=== PATIENT | female | born 1990 | race African-American/Black ===

== ENCOUNTER 2018-04-03 15:17 | Emergency (ER) | payer OTHER ==
[2018-04-03 15:34] VITALS: BP 114/48; PULSE 70; TEMP 98.4; BMI 20.7
[2018-04-03] MEDS ORDERED: SODIUM CHLORIDE 1,000 ML IV STA (16:23)
[2018-04-03] MEDS ORDERED: ACETAMINOPHEN 1000 MG/100 ML VIAL (NON FORMULARY) IVPB ONE (16:23)
--- NOTE | 2018-04-03 16:24 | PDOC ---
History of Present Illness - General Chief Complaint: Pain, Acute Stated Complaint: ABD PAIN Time Seen by Provider: 04/03/18 15:46 History Source: Patient Exam Limitations: No Limitations - History of Present Illness Initial Comments: 04/03/18 18:26 Patient is a 27-year-old female with past medical history of endometriosis, who presents to the emergency department today with left lower quadrant pain, back pain, frequency, dysuria and urgency. Patient states her symptoms have lasted about a month. She states she's been following with an INVESTIGATOR FRAUD for her endometriosis. She states that her symptoms usually occur with her cycle however the symptoms never resolved from the prior month. Denies fevers, chills , shirts of breath, difficulty breathing, nausea, vomiting and diarrhea. Past History - Travel Traveled outside of the country in the last 30 days: No Close contact w/someone who was outside of country & ill: No - Past Medical History Allergies/Adverse Reactions: Allergies Allergy/AdvReac Type Severity Reaction Status Date / Time No Known Allergies Allergy Verified 04/03/18 15:30 Home Medications: Ambulatory Orders NK [No Known Home Medication] 05/24/14 COPD: No Other medical history: CHRONIC LOWER BACK PAIN - Suicide/Smoking/Psychosocial Hx Smoking History: Never smoked Review of Systems - Review of Systems Able to Perform ROS?: Yes Comments:: 04/03/18 18:23 CONSTITUTIONAL: Absent: fever, chills, diaphoresis, generalized weakness, malaise, loss of appetite HEENT: Absent: rhinorrhea, nasal congestion, throat pain, throat swelling, difficulty swallowing, mouth swelling, ear pain, eye pain, visual Changes CARDIOVASCULAR: Absent: chest pain, loss of consciousness, palpitations, irregular heart rate, peripheral edema RESPIRATORY: Absent: cough, shortness of breath, dyspnea with exertion, orthopnea, wheezing, stridor, hemoptysis GASTROINTESTINAL: Present: abdominal pain Absent: abdominal pain, abdominal distension, nausea, vomiting, diarrhea, constipation, melena, hematochezia GENITOURINARY: Present: dysuria, frequency, urgency. Absent: dysuria, frequency, urgency, hesitancy, hematuria, flank pain, genital pain MUSCULOSKELETAL: Absent: myalgia, arthralgia, joint swelling SKIN: Absent: rash, itching, pallor HEMATOLOGIC/IMMUNOLOGIC: Absent: easy bleeding, easy bruising, lymphadenopathy, frequent infections ENDOCRINE: Absent: unexplained weight gain, unexplained weight loss, heat intolerance, cold intolerance NEUROLOGIC: Absent: headache, focal weakness or paresthesias, dizziness, unsteady gait, seizure, mental status changes, bladder or bowel incontinence PSYCHIATRIC: Absent: anxiety, depression, suicidal or homicidal ideation, hallucinations. Is the patient limited Estonian proficient: No *Physical Exam - Vital Signs Last Vital Signs Temp Pulse Resp BP Pulse Ox 98.4 F 70 19 114/48 L 100 04/03/18 15:30 04/03/18 15:30 04/03/18 15:30 04/03/18 15:30 04/03/18 15:30 - Physical Exam Comments: 04/03/18 18:25 GENERAL: Well developed, well nourished. Awake and alert. No acute distress. HEENT: Normocephalic, atraumatic. PERRLA, EOMI. No conjunctival pallor. Sclera are non- icteric. Moist mucous membranes. Oropharynx is clear. NECK: Supple. Full ROM. No JVD. Carotid pulses 2+ and symmetric, without bruits. No thyromegaly. No lymphadenopathy. CARDIOVASCULAR: Regular rate and rhythm. No murmurs, rubs, or gallops. Distal pulses are 2+ and symmetric. PULMONARY: No evidence of respiratory distress. Lungs clear to auscultation bilaterally. No wheezing, rales or rhonchi. ABDOMINAL: TTP of the LLQ/adenexal region and suprapubic region. Soft. Non-distended. No rebound or guarding. No organomegaly. Normoactive bowel sounds. MUSCULOSKELETAL Normal range of motion at all joints. No bony deformities or tenderness. (+) CVA tenderness. EXTREMITIES: No cyanosis. No clubbing. No edema. No calf tenderness. SKIN: Warm and dry. Normal capillary refill. No rashes. No jaundice. NEUROLOGICAL: Alert, awake, appropriate. Cranial nerves 2-12 intact. No deficits to light touch and temperature in face, upper extremities and lower extremities. No motor deficits in the in face, upper extremities and lower extremities. Normoreflexic in the upper and lower extremities. Normal speech. Toes are down- going bilaterally. Gait is normal without ataxia. PSYCHIATRIC: Cooperative. Good eye contact. Appropriate mood and affect. Moderate Sedation - Procedure Monitoring Vital Signs: Procedure Monitoring Vital Signs Temperature 98.4 F 04/03/18 15:30 Pulse Rate 70 04/03/18 15:30 Respiratory Rate 19 04/03/18 15:30 Blood Pressure 114/48 L 04/03/18 15:30 O2 Sat by Pulse Oximetry (%) 100 04/03/18 15:30 ED Treatment Course - LABORATORY CBC & Chemistry Diagram: 04/03/18 17:00 04/03/18 17:00 Medical Decision Making - Medical Decision Making 04/03/18 18:29 Patient is a 27-year-old female who presents to emergency department with lower abdominal pain for one month. On examination of left lower quadrant tenderness as well as suprapubic tenderness. Patient presented CVA tenderness. UTI versus pylo versus cyst or ovarian pathology. Basic labs, pelvic ultrasound, kidney ultrasound and urine ordered. Reevaluate Sign out given to Jackson MACK. Pt pending labs and US for dispo. Anticipate discharge *DC/Admit/Observation/Transfer Diagnosis at time of Disposition: Chronic female pelvic pain - Discharge Dispostion Disposition: HOME Condition at time of disposition: Stable - Referrals Referrals: Elmer Ruiz MD [Primary Care Provider] - Uvaldo Orourke MD [Staff Physician] - - Patient Instructions Printed Discharge Instructions: DI for Pelvic Pain Additional Instructions: You had a transvaginal ultrasound and renal ultrasound done today. The following are the preliminary reports from the emergency department: Transvaginal ultrasound: 1.8 cm left ovarian follicle cysts is seen. The right ovary appears unremarkable demonstrating several subsegmental follicles. No Doppler evidence of ovarian torsion. A small amount of free fluid is noted within the cul-de- sac. An approximately 3.7 cm subserosa lesion is seen along the uterine fundus probably representing a leiomyoma under statistical bases. Overall the uterine size is approximately 9 x 6 x 4 cm. The endometrium is slightly picking measuring 0.8 cm which may be on physiologic basis. Renal ultrasound: Negative You have been advised to follow-up with your engineering project designer or the one listed on your discharge. Take Tylenol or Motrin as needed for pain every 4-6 hours Return back to the ER for severe/persistent/worsening pain or any concerns - Post Discharge Activity
[2018-04-03] MEDS ORDERED: ACETAMINOPHEN INJECTION 100 ML IVPB ONE (16:48)
[2018-04-03 17:18] LABS: EOS % 6.8 % (0-4.5); HEMATOCRIT 38.4 % (32.4-45.2); HEMOGLOBIN 13.1 GM/dL (10.7-15.3); MEAN CELL VOLUME 82.3 fl (80-96); MEAN PLT VOLUME 9.6 fl (7.5-11.1); MONO % 8.1 % (3.8-10.2); NEUT % 49.1 % (42.8-82.8); PLATELET COUNT 203 K/MM3 (134-434); RBC 4.67 M/mm3 (3.60-5.2); RDW 12.7 % (11.6-15.6); WHITE BLOOD COUNT 4.4 K/mm3 (4.0-10.0)
[2018-04-03 17:22] LABS: HCG,QUALITATIVE URINE Negative
[2018-04-03 17:37] LABS: URINE APPEARANCE CLEAR; URINE BILIRUBIN NEGATIVE (<2.0 mg/dL); URINE COLOR STRAW; URINE GLUCOSE (UA) NEGATIVE (NEGATIVE); URINE KETONE NEGATIVE (NEGATIVE); URINE LEUK ESTERASE NEGATIVE (NEGATIVE); URINE NITRITE NEGATIVE (NEGATIVE); URINE PROTEIN NEGATIVE (NEGATIVE); URINE UROBILINOGEN NEGATIVE mg/dL (0.2-1.0)
[2018-04-03 18:05] LABS: ALBUMIN 3.9 g/dl (3.4-5.0); ALK PHOS 63 U/L (45-117); ANION GAP 5 MMOL/L (8-16); BILIRUBIN,TOTAL 0.1 mg/dL (0.2-1); BLOOD UREA NITROGEN 14 mg/dL (7-18); CALCIUM 9.1 mg/dL (8.5-10.1); CHLORIDE 106 mmol/L (98-107); CO2 24 mmol/L (21-32); CREATININE 0.9 mg/dL (0.55-1.3); GLUCOSE,RANDOM 93 mg/dL (74-106); POTASSIUM 4.3 mmol/L (3.5-5.1); SGOT/AST 14 U/L (15-37); SGPT/ALT 19 U/L (13-61); SODIUM 135 mmol/L (136-145); TOT PROT 8.3 g/dl (6.4-8.2)
--- NOTE | 2018-04-03 19:37 | PDOC ---
History of Present Illness - General Chief Complaint: Pain, Acute Stated Complaint: ABD PAIN Time Seen by Provider: 04/03/18 15:46 History Source: Patient Exam Limitations: No Limitations - History of Present Illness Travel History: No Initial Comments: 04/03/18 19:32 Best Contact: PCP: Dr. Ruiz [phone] / CHLORINATION OPERATOR: Dr. Hensley [phone] Pmhx: Chronic back and abd pain/ prescribed naprosyn from PMD Pshx:none Allergies: malaria med FH:0 Social Hx: Cigarettes/ 0 Alcohol/ social Drugs/0 LMP:Mar 21, 2018 Discharge was documented in front of the patient in the exam room. 27-year-old female otherwise healthy besides having chronic back and abdominal pain which her PMD prescribed Naprosyn for those symptoms. Patient comes in complaining of intermittent left-sided suprapubic discomfort for years. Patient states the pain got worse last month in February. Pain is described as 3/10 nonradiating intermittent discomfort without exacerbating alleviating factors. Patient denies nausea/vomiting, fever/diarrhea, headache, dizziness, lightheadedness, neck pain/stiffness, back pain, chest pain, flank pains, urinary symptoms: Frequency/urgency/hesitancy. Past History - Past Medical History Allergies/Adverse Reactions: Allergies Allergy/AdvReac Type Severity Reaction Status Date / Time No Known Allergies Allergy Verified 04/03/18 15:30 Home Medications: Ambulatory Orders NK [No Known Home Medication] 05/24/14 COPD: No Other medical history: CHRONIC LOWER BACK PAIN - Suicide/Smoking/Psychosocial Hx Smoking History: Never smoked Information on smoking cessation initiated: No Review of Systems - Review of Systems Able to Perform ROS?: Yes Comments:: 04/03/18 19:41 CONSTITUTIONAL: Absent: fever, chills, diaphoresis, generalized weakness, malaise, loss of appetite HEENT: Absent: rhinorrhea, nasal congestion, throat pain, throat swelling, difficulty swallowing, mouth swelling, ear pain, eye pain, visual Changes CARDIOVASCULAR: Absent: chest pain, loss of consciousness, palpitations, irregular heart rate, peripheral edema RESPIRATORY: Absent: cough, shortness of breath, dyspnea with exertion, orthopnea, wheezing, stridor, hemoptysis GASTROINTESTINAL: Left pelvic pain Absent: abdominal pain, abdominal distension, nausea, vomiting, diarrhea, constipation, melena, hematochezia GENITOURINARY: Absent: dysuria, frequency, urgency, hesitancy, hematuria, flank pain, genital pain MUSCULOSKELETAL: Absent: myalgia, arthralgia, joint swelling SKIN: Absent: rash, itching, pallor HEMATOLOGIC/IMMUNOLOGIC: Absent: easy bleeding, easy bruising, lymphadenopathy, frequent infections ENDOCRINE: Absent: unexplained weight gain, unexplained weight loss, heat intolerance, cold intolerance NEUROLOGIC: Absent: headache, focal weakness or paresthesias, dizziness, unsteady gait, seizure, mental status changes, bladder or bowel incontinence PSYCHIATRIC: Absent: anxiety, depression, suicidal or homicidal ideation, hallucinations. Is the patient limited Setswana proficient: No *Physical Exam - Vital Signs Last Vital Signs Temp Pulse Resp BP Pulse Ox 98.4 F 70 19 114/48 L 100 04/03/18 15:30 04/03/18 15:30 04/03/18 15:30 04/03/18 15:30 04/03/18 15:30 - Physical Exam Comments: 04/03/18 19:42 GENERAL: Well developed, well nourished. Awake and alert. No acute distress. HEENT: Normocephalic, atraumatic. PERRLA, EOMI. No conjunctival pallor. Sclera are non- icteric. Moist mucous membranes. Oropharynx is clear. NECK: Supple. Full ROM. No JVD. Carotid pulses 2+ and symmetric, without bruits. No thyromegaly. No lymphadenopathy. CARDIOVASCULAR: Regular rate and rhythm. No murmurs, rubs, or gallops. Distal pulses are 2+ and symmetric. PULMONARY: No evidence of respiratory distress. Lungs clear to auscultation bilaterally. No wheezing, rales or rhonchi. ABDOMINAL: Soft. Non-tender. Non-distended. No rebound or guarding. No organomegaly. Normoactive bowel sounds. MUSCULOSKELETAL Normal range of motion at all joints. No bony deformities or tenderness. No CVA tenderness. EXTREMITIES: No cyanosis. No clubbing. No edema. No calf tenderness. SKIN: Warm and dry. Normal capillary refill. No rashes. No jaundice. PT DECLINES PELVIC EXAM. WILL SEE HER CHLORINATION OPERATOR 04/03/18 19:43 Moderate Sedation - Procedure Monitoring Vital Signs: Procedure Monitoring Vital Signs Temperature 98.4 F 04/03/18 15:30 Pulse Rate 70 04/03/18 15:30 Respiratory Rate 19 04/03/18 15:30 Blood Pressure 114/48 L 04/03/18 15:30 O2 Sat by Pulse Oximetry (%) 100 04/03/18 15:30 ED Treatment Course - LABORATORY CBC & Chemistry Diagram: 04/03/18 17:00 04/03/18 17:00 - ADDITIONAL ORDERS Additional order review: Laboratory Results 04/03/18 04/03/18 17:00 17:00 Sodium 135 L Potassium 4.3 Chloride 106 Carbon Dioxide 24 Anion Gap 5 L BUN 14 Creatinine 0.9 Creat Clearance w eGFR > 60 Random Glucose 93 Calcium 9.1 Total Bilirubin 0.1 L AST 14 L ALT 19 Alkaline Phosphatase 63 Total Protein 8.3 H Albumin 3.9 Urine Color Straw Urine Appearance Clear Urine pH 5.0 D Ur Specific [place] 1.012 Urine Protein Negative Urine Glucose (UA) Negative Urine Ketones Negative Urine Blood Negative Urine Nitrite Negative Urine Bilirubin Negative Urine Urobilinogen Negative Ur Leukocyte Esterase Negative Urine HCG, Qual Negative 04/03/18 17:00 RBC 4.67 MCV 82.3 MCHC 34.0 RDW 12.7 MPV 9.6 Neutrophils % 49.1 D Lymphocytes % 35.0 Monocytes % 8.1 Eosinophils % 6.8 H Basophils % 1.0 - Medications Given in the ED: ED Medications Discontinued Medications Generic Name Dose Route Start Last Admin Trade Name Freq PRN Reason Stop Dose Admin Acetaminophen 1,000 mg 04/03/18 16:23 04/03/18 17:12 Ofirmev Injection - IVPB 04/03/18 16:24 1,000 mg ONCE ONE Administration Sodium Chloride 1,000 mls @ 1,000 mls/hr 04/03/18 16:23 04/03/18 17:11 Normal Saline - IV 04/03/18 17:22 1,000 mls/hr ASDIR STA Administration Progress Note - Progress Note Progress Note: Transvaginal ultrasound: 1.8 cm left ovarian follicle cysts is seen. The right ovary appears unremarkable demonstrating several subsegmental follicles. No Doppler evidence of ovarian torsion. A small amount of free fluid is noted within the cul-de- sac. An approximately 3.7 cm subserosa lesion is seen along the uterine fundus probably representing a leiomyoma under statistical bases. Overall the uterine size is approximately 9 x 6 x 4 cm. The endometrium is slightly picking measuring 0.8 cm which may be on physiologic basis. Renal ultrasound: Negative *DC/Admit/Observation/Transfer Diagnosis at time of Disposition: Chronic female pelvic pain - Discharge Dispostion Disposition: HOME Condition at time of disposition: Stable Decision to Admit order: No - Referrals Referrals: Elmer Ruiz MD [Primary Care Provider] - Uvaldo Orourke MD [Staff Physician] - - Patient Instructions Printed Discharge Instructions: DI for Pelvic Pain Additional Instructions: You had a transvaginal ultrasound and renal ultrasound done today. The following are the preliminary reports from the emergency department: Transvaginal ultrasound: 1.8 cm left ovarian follicle cysts is seen. The right ovary appears unremarkable demonstrating several subsegmental follicles. No Doppler evidence of ovarian torsion. A small amount of free fluid is noted within the cul-de- sac. An approximately 3.7 cm subserosa lesion is seen along the uterine fundus probably representing a leiomyoma under statistical bases. Overall the uterine size is approximately 9 x 6 x 4 cm. The endometrium is slightly picking measuring 0.8 cm which may be on physiologic basis. Renal ultrasound: Negative You have been advised to follow-up with your forest pathology associate professor or the one listed on your discharge. Take Tylenol or Motrin as needed for pain every 4-6 hours Return back to the ER for severe/persistent/worsening pain or any concerns - Post Discharge Activity
== END 2018-04-03 19:50 | disposition home or self-care (01) ==
LOC: JER 15:17
PROC: 3E0337Z Introduction of Electrolytic and Water Balance Substance into Peripheral Vein, Percutaneous Approach (ICD-10-PCS; principal; 2018-04-03)
PROC: 3E03329 Introduction of Other Anti-infective into Peripheral Vein, Percutaneous Approach (ICD-10-PCS; 2018-04-03)
DX: R10.2 Pelvic and perineal pain (principal); N83.202 Unspecified ovarian cyst, left side
CPT/HCPCS: 36415; 76775-TC; 76830-TC; 80053; 81003; 84703; 85025; 87086; 99282-25; J0131; J7030